=== PATIENT | female | born 1970 | race Caucasian/White ===

== ENCOUNTER 2017-11-23 19:57 | Emergency (ER) | payer OTHER ==
[~2017-11-23] VITALS: Ht 157.5 cm; Wt 65.8 kg
[~2017-11-23 19:57] MED LIST: DEPO-MEDROL40 MG/ML IJ; FLONASE16 GM NASAL; GILTUSS TR TAB1 EACH PO; LODINE XL500 MG PO; PREDNISONE10 MG PO; TESSALON PERLE100 MG PO; TRAMADOL HCL50 MG PO; ZANAFLEX4 MG PO; ZYRTEC10 MG PO
[2017-11-23] MEDS ORDERED: NEURONTIN300 MG (20:22)
[2017-11-23] MEDS ORDERED: PRILOSEC OTC20 MG (20:22)
== END 2017-11-24 02:25 | disposition home or self-care (01) ==
LOC: ER 19:57
DX: M54.16 Radiculopathy, lumbar region (principal)